=== PATIENT | male | born 1990 | race Caucasian/White ===

== ENCOUNTER 2016-09-28 | Outpatient (CLI) | payer MEDICAID | END 2016-09-28 23:44 | disposition critical access hospital (66) | DX: R11.10 Vomiting, unspecified (principal) | CPT/HCPCS: A0425; A0429 ==

== ENCOUNTER 2016-09-28 23:56 | Emergency (ER) | payer MEDICAID ==
[2016-09-29] MEDS ORDERED: ONDANSETRON ODT 4 MG TABLET TL STA (00:13)
[2016-09-29] MEDS ORDERED: ONDANSETRON ODT 4 MG TABLET ONE (00:13)
[2016-09-29] MEDS ORDERED: ONDANSETRON 4 MG/2 ML VIAL ONE (00:42)
[2016-09-29] MEDS ORDERED: SODIUM CHLORIDE 0.9% 1,000 ML IV ONE (00:42)
[2016-09-29] MEDS ORDERED: ONDANSETRON 4 MG/2 ML VIAL IVP STA (00:43)
[2016-09-29] MEDS ORDERED: FOLIC ACID INJ 1 MG, THIAMINE INJ 100 MG, MAGNESIUM SULFATE 2 GM, MULTIVITAMIN 10 ML in... IV STA ×5 (00:43)
[2016-09-29] MEDS ORDERED: MAGNESIUM SULFATE 2 GRAM 50 ML IV ONE (00:48)
[2016-09-29] MEDS ORDERED: THIAMINE 100 MG/1 ML 2 ML MDV ONE (00:48)
[2016-09-29] MEDS ORDERED: POTASSIUM BICARB 25 MEQ TABLET PO STA (00:53)
[2016-09-29] MEDS ORDERED: POTASSIUM BICARB 25 MEQ TABLET PO ONE (01:00)
== END 2016-09-29 07:16 | disposition home or self-care (01) ==
DX: F10.120 Alcohol abuse with intoxication, uncomplicated (principal); R11.10 Vomiting, unspecified; F17.200 Nicotine dependence, unspecified, uncomplicated
CPT/HCPCS: 36415; 80053; 80306; 80307; 80320; 80329; 81003; 83690; 85025; 96365; 96366; 99284; 99285; A9270; J3411; Q0162

== ENCOUNTER 2017-02-04 17:29 | Emergency (ER) | payer OTHER, MEDICAID ==
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
[2017-02-04] MEDS ORDERED: METHOCARBAMOL 500 MG TABLET PO STA (18:13)
[2017-02-04] MEDS ORDERED: HYDROcod/ACETAM 5/325 MG TABLET PO STA (18:13)
[2017-02-04] MEDS ORDERED: IBUPROFEN 600 MG TABLET PO STA (18:13)
[2017-02-04] MEDS ORDERED: HYDROcod/ACETAM 5/325 MG TABLET ONE (18:18)
[2017-02-04] MEDS ORDERED: IBUPROFEN 600 MG TABLET PO ONE (18:18)
[2017-02-04] MEDS ORDERED: METHOCARBAMOL 500 MG TABLET PO ONE (18:18)
--- NOTE | 2017-02-04 19:18 | XRAY Preliminary Report ---
Exam: XR Shoulder 3 View LT IMPRESSION: Negative left shoulder. [facility] SITE ID: [id number]
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
--- NOTE | 2017-02-04 19:21 | XRAY Preliminary Report ---
Exam: XR Chest 2 View PA/LAT IMPRESSION: Negative chest [facility] SITE ID: [id number]
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
--- NOTE | 2017-02-04 19:30 | CT Preliminary Report ---
Exam: CT Cervical Spine W/O IMPRESSION: Negative for fracture and subluxation of the cervical spine. [facility] SITE ID: [id number]
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
[2017-02-04 19:44] VITALS: BP 144/70
== END 2017-02-04 19:40 | disposition home or self-care (01) ==
LOC: ED 17:29
DX: S44.92XA Injury of unspecified nerve at shoulder and upper arm level, left arm, initial encounter (principal); S46.912A Strain of unspecified muscle, fascia and tendon at shoulder and upper arm level, left arm, initial encounter; S16.1XXA Strain of muscle, fascia and tendon at neck level, initial encounter; V43.62XA Car passenger injured in collision with other type car in traffic accident, initial encounter; F17.200 Nicotine dependence, unspecified, uncomplicated
CPT/HCPCS: 71020; 72125; 73030; 99283; A9270